=== PATIENT | male | born 1965 | race Caucasian/White ===

== ENCOUNTER → 2025-09-15 11:31 | Outpatient (REF) | payer OTHER, SELFPAY ==
[2025-09-15 12:30] LABS: Hematocrit 43.3 % (39.0-52.0); Hemoglobin 14.6 g/dL (13.0-18.0); Mean Corp Hgb Conc. 33.7 g/dL (33.0-37.0); Mean Corpuscular Volume 91.0 fL (80.0-94.0); Nucleated Red Blood Cells % 0 % (-); Platelet Count 288 10^3/uL (130-400); Red Cell Dist. Width 11.9 % (11.5-14.5)
[2025-09-15 14:13] LABS: Blood Urea Nitrogen 11 mg/dl (9-20); Calcium 10.5 mg/dl (8.4-10.2); Carbon Dioxide 31 mmol/L (22-30); Chloride 101 mmol/L (98-107); Glucose 97 mg/dl (70-99); Potassium 4.7 mmol/L (3.5-5.1); Sodium 137 mmol/L (135-145); eGFR > 60.00
== END ==
LOC: REG 11:31
PROVIDERS: ATTENDING PHYSICIAN Orthopaedic Surgery
DX: Z01.818 Encounter for other preprocedural examination (principal)
CPT/HCPCS: 36415; 80048; 85025; 93005

== ENCOUNTER 2025-09-26 12:41 | Emergency (ER) | payer OTHER, SELFPAY ==
[2025-09-26 12:58] VITALS: BP 140/88
[2025-09-26 13:24] LABS: Hematocrit 41.8 % (39.0-52.0); Hemoglobin 14.4 g/dL (13.0-18.0); Mean Corp Hgb Conc. 34.4 g/dL (33.0-37.0); Mean Corpuscular Volume 90.9 fL (80.0-94.0); Nucleated Red Blood Cells % 0 % (-); Platelet Count 297 10^3/uL (130-400); Red Cell Dist. Width 12.0 % (11.5-14.5)
[2025-09-26 13:32] LABS: INR 0.95; PT 12.8 Sec (11.4-14.6)
[2025-09-26 13:58] LABS: Troponin I < 0.012 ng/ml
[2025-09-26 15:10] LABS: ALT (SGPT) 41 U/L (0-50); AST (SGOT) 29 U/L (17-59); Albumin 4.6 g/dl (3.5-5.0); Alkaline Phosphatase 107 U/L (38-126); Blood Urea Nitrogen 12 mg/dl (9-20); Calcium 10.5 mg/dl (8.4-10.2); Carbon Dioxide 20 mmol/L (22-30); Chloride 106 mmol/L (98-107); Glucose 105 mg/dl (70-99); Potassium 4.4 mmol/L (3.5-5.1); Sodium 136 mmol/L (135-145); Total Protein 7.6 g/dl (6.3-8.2); eGFR > 60.00
[2025-09-26 17:10] VITALS: BP 138/83
[2025-09-26 17:11] VITALS: BMI 26.5
[2025-09-26 17:17] LABS: Troponin I < 0.012 ng/ml
--- NOTE | 2025-09-26 17:36 | ED.GENMED ---
History of Present Illness
General
Chief Complaint: Breathing Problem
Source: patient and physician
Time Seen by Provider: 09/26/25 16:42
History of Present Illness
History of Present Illness:
60-year-old male with past medical history of hypertension, hyperlipidemia GERD status post recent right upper extremity surgery stemming from a fall presents to the emergency department at the request of his primary care provider for evaluation
after patient started experiencing chest discomfort and some mild shortness of breath over the last 3 days, primary concern for possible PE, also noting some changes in his EKG that was done preoperatively. At rest patient states he only has some
minimal discomfort. He denies any lower extremity edema, cough, pleurisy or hemoptysis. Patient is not on any anticoagulants and was not given any anticoagulants postoperatively.
Past History
Past History
ED Past Medical History: GERD, HTN, Hypercholesterolemia and Psychiatric (ADD)
ED Past Surgical History: Orthopedic (L5 microdiscectomy, left shoulder) and Other (Bilateral inguinal hernia repair)
Social History
Tobacco: Non-smoker
Alcohol: None
Drug: None
Personal:
Living: with family
Employment: Employed
Family History
Family History: Other (Noncontributory)
Review of Systems
Review of Systems
All Other Systems: ROS reviewed and negative except as documented in HPI and ROS
Phy Exam
Physical Exam
Physical Exam:
GENERAL: Alert , in no apparent distress
HEAD: Normocephalic atraumatic
EYE: conjunctiva clear
NECK: Supple
ENT: o/p clr, mmm.
CARDIAC: Regular rate and rhythm
LUNGS: Clear breath sounds bilaterally, no acute respiratory distress, no wheezes/rales/rhonchi
NEUROLOGICAL: Alert and oriented
SKIN: Warm and dry, skin intact.
MUSCULOSKELETAL: well perfused. No edema or tenderness
PSYCH: Normal and appropriate interaction.
Scores
Heart Failure Risk
Heart Failure Risk Score: Not Applicable
Heart Score for Chest Pain Patients
STEMI patient?: No
History: Slightly or Non-Suspicious
ECG: Normal
Age: >45 - <65 years
Risk Factors: 1 or 2 Risk Factors
Troponin: </= Normal Limit
Heart Score for Chest Pain Patients: 2
Heart Score Risk: 2.5% MACE over next 6 weeks
Withdrawal Assessment of Alcohol
Withdrawal Assessment Completed?: Not applicable
Course
Orders/Labs/Results
Orders:
Orders
09/26/25 12:42
EKG [Electrocardiogram (*1)] Urgent
Reason for Study: Shortness of Breath
EKG- Treatment ONCE
09/26/25 13:14
Complete Blood Count/With Diff Urgent
Comprehensive Metabolic Panel Urgent
Prothrombin Time Urgent
Troponin I Urgent
09/26/25 16:45
Add On- LAB Urgent
Tests Added?: BNP
09/26/25 16:46
CT Chest PE Study Urgent
Comment:
Reason For Exam: recent surgery, SOB, chest discomfort
09/26/25 16:49
NT-proBNP Urgent
Comment: ADD ON
Troponin I Urgent
Abnormal Lab Results
09/26/25
13:14
RBC 4.60 L 10^6/uL
(4.70-6.10)
MCH 31.3 H pg
(27.0-31.0)
Carbon Dioxide 20 L mmol/L
(22-30)
Glucose 105 H mg/dl
(70-99)
Calcium 10.5 H mg/dl
(8.4-10.2)
09/26/25 13:14
09/26/25 13:14
Vital Signs
Initial and Last Documented VS:
Initial Vital Signs
Temp Pulse Resp BP Pulse Ox
98.8 F 77 18 140/88 99
09/26/25 12:58 09/26/25 12:58 09/26/25 12:58 09/26/25 12:58 09/26/25 12:58
Last Documented Vital Signs
Temp Pulse Resp BP Pulse Ox
98.8 F 74 18 138/83 97
09/26/25 12:58 09/26/25 17:10 09/26/25 17:10 09/26/25 17:10 09/26/25 17:37
MDM/Problems Addressed
Differential Diagnosis Includes:
PE
ACS
CHF
Valvular dysfunction
Atelectasis
Pneumonia
Pleurisy
MDM/Problems Addressed:
60-year-old male presenting to the ER for evaluation of possible pulmonary embolism at the request of primary care provider. Recently postop, now with chest pain and some exertional dyspnea. Appears well at rest. Hemodynamically stable. Labs
reassuring, CT of the chest added to workup. Disposition pending CT scan results.
*Radiology
Radiology exam reviewed: radiology read reviewed
*Pulse Oximetry
SaO2: 97
Oxygen Mode of Delivery: Room air
Patient hypoxic: no
*Critical Care Note
Total Time (30-74mins, 75-104mins- exclusive of procedures): Not Applicable
Patient Management
Discussion with other providers: PCP
Escalation/DeEscalation of care consider admission/obs:
Repeat labs unchanged, CT of the chest negative for any acute pathologies. At this time patient is stable for discharge home. Chest pain hotline notified. Patient to continue following up as an outpatient. I notified patient's primary care
provider via [place] text about ER workup. Will follow-up with the patient.
ED Attending Note
-
Portions of this chart may have been created with voice recognition software.� Occasional wrong word or��sound alike� substitutions may have occurred due to the inherent limitations of voice recognition software.
Discharge Plan
Departure
Patient Disposition: Home (Routine Discharge)
Date of Disposition: 09/26/25
Time of Disposition: 18:03
Patient with high blood pressure during this ER visit?: No
Discharge Problem:
Chest pain
Instructions: Chest Pain CBC Follow Up
Prescriptions:
No Action
yhwvsaz-zdhvvvxfmpzwq-dogimrhe 1 TABLET tablet
1 tab PO DAILYPRN PRN (Reason: pain)
ezetimibe-simvastatin 1 TABLET tablet
1 tab PO HS
dextroamphetamine-amphetamine 10 MG tablet
10 mg PO DAILY@1400
tamsulosin 0.4 MG capsule
0.4 mg PO HS
zolpidem 5 MG tablet
5 mg PO HSPRN PRN (Reason: sleep when traveling)
albuterol sulfate 1 PUFF HFA aerosol inhaler
2 puff inhalation R Q6HPRN PRN (Reason: sob)
lisdexamfetamine [Vyvanse] 30 MG capsule
30 mg PO DAILY
multivitamin with folic acid [Tab-A-Callum] 1 TABLET tablet
1 tab PO HS
acetaminophen [Tylenol Extra Strength] 500 MG tablet
1,000 mg PO Q6HPRN PRN (Reason: mild pain,fever)
azithromycin 250 MG tablet
250 mg PO DAILY Qty: 3 0RF
hydroxychloroquine 200 MG tablet
200 mg PO BID Qty: 6 0RF
zinc sulfate 220 MG capsule
220 mg PO DAILY 0RF
Rx Instructions:
While recovering from COVID-19
gentamicin [Gentak] 3.5 GM ointment
0.5 inch OP QID Qty: 1 0RF
ibuprofen 800 MG tablet
800 mg PO QIDPRN PRN (Reason: pain, fever. Take with food.) Qty: 30 0RF
oxycodone-acetaminophen 5 MG/325 MG tablet
1 tab PO Q6HPRN PRN (Reason: pain) Qty: 6 0RF
Referrals:
Theodore Mata DO [Family Provider, Family Practice]
Interventions
Interventions:
*General Assessment Last Done: 09/26/25 13:00
*Neglect/Abuse Screening Last Done: 09/26/25 13:00
*ED COVID-19 Vaccine History Last Done: 09/26/25 13:00
*ED Influenza Vaccine History Last Done: 09/26/25 13:00
[facility] Fall Risk Assessment Tool Last Done: 09/26/25 18:30
*Risk Screen - Suicide (C-SSRS) Last Done: 09/26/25 13:00
*Nursing Disposition Last Done: 09/26/25 18:30
ED- Cardiac Assessment Last Done: 09/26/25 16:51
ED- Pulmonary Assessment Last Done: 09/26/25 16:51
Discharge Date and Time
Discharge Date/Time: 09/26/25 18:35
Print Language: PERSIAN
== END 2025-09-26 18:35 | disposition home or self-care (01) ==
LOC: EMR 12:41
PROVIDERS: Emergency Medicine; Physician Assistant Medical; EMERGENCY PHYSICIAN Emergency Medicine; FAMILY PHYSICIAN Family Medicine
DX: R07.9 Chest pain, unspecified (principal); E78.00 Pure hypercholesterolemia, unspecified; I10 Essential (primary) hypertension
CPT/HCPCS: 99284; 71275; 80053; 83880; 84484; 85025; 85610; 93005; Q9967